=== PATIENT | female | born 1960 | race Caucasian/White ===

== ENCOUNTER 2018-09-22 11:05 | Emergency (ER) | payer OTHER ==
[2018-09-22] MEDS: ACETAMINOPHEN 500 MG TAB PO (12:26)
[2018-09-22] MEDS: CYCLOBENZAPRINE 10 MG TAB PO (12:26)
== END 2018-09-22 14:15 | disposition home or self-care (01) ==
LOC: FTE 11:05
DX: S06.0X1A Concussion with loss of consciousness of 30 minutes or less, initial encounter (principal); M62.838 Other muscle spasm; R07.9 Chest pain, unspecified; V49.59XA Passenger injured in collision with other motor vehicles in traffic accident, initial encounter
CPT/HCPCS: 70450; 71045; 99284-25

== ENCOUNTER 2019-01-01 17:22 | Emergency (ER) | payer OTHER ==
[2019-01-01] MEDS: ACETAMINOPHEN 325 MG TAB PO (18:06)
[2019-01-01] MEDS: predniSONE 20 MG TAB PO (18:06)
[2019-01-01] MEDS: ALBUTEROL 0.5% (NEB) 2.5 MG/0.5 ML AMP INH (18:27)
== END 2019-01-01 19:53 | disposition home or self-care (01) ==
LOC: FTE 17:22
DX: J20.9 Acute bronchitis, unspecified (principal)
CPT/HCPCS: 71045; 94644; 99283-25